=== PATIENT | female | born 1985 | race Caucasian/White ===

== ENCOUNTER 2018-12-26 06:47 | Inpatient (IN) | payer OTHER ==
[~2018-12-26] VITALS: Ht 175.3 cm; Wt 136.1 kg
[2018-12-26] MEDS ORDERED: FOLIC ACID1 MG (06:56)
[2018-12-26] MEDS ORDERED: PRENATABS FA T1 EACH (06:56)
== END 2018-12-28 13:28 | disposition home or self-care (01) | DRG 798 ==
LOC: ER 06:47 → SEC-K 07:22 → O/R 07:22 → OB/GYN 07:22 → LDR 08:24 → O/R 17:05 → OB/GYN 20:42
PROVIDERS: ADMIT Obstetrics & Gynecology
PROC: 0UL70ZZ Occlusion of Bilateral Fallopian Tubes, Open Approach (ICD-10-PCS; 2018-12-26)
PROC: 10E0XZZ Delivery of Products of Conception, External Approach (ICD-10-PCS; principal; 2018-12-26 17:15)
DX: O80 Encounter for full-term uncomplicated delivery (principal); Z37.0 Single live birth; Z3A.37 37 weeks gestation of pregnancy; Z30.2 Encounter for sterilization